=== PATIENT | female | born 1955 | race Hispanic/Latino ===

== ENCOUNTER 2019-08-20 08:34 | Outpatient (CLI) | payer MEDICARE ==
--- NOTE | 2019-08-20 10:48 | CT ---
CT OF ABDOMEN AND PELVIS: DATE: 08/20/2019. HISTORY: Disorder of retroperitoneum, history of right renal cell carcinoma and left-sided breast cancer. Eval uate for a retroperitoneal mass lesion. TECHNIQUE: Axial CT imaging at 5 mm intervals from lung bases through pubic symphysis with IV and oral contrast. Coronal and sagittal reformatted imaging obtained. FINDINGS: Partially visualized left breast implant present consistent with history of left mastectomy. Imaged l sharad bases unremarkable. No free intraperitoneal air or fluid. Hepatic parenchyma is diffusely hypodense, evidence of steatosis. Cholecystectomy clips are present. The spleen, pancreas, adrenal glands, and left kidney demonstrate no acute findings. The right kidney is absent, consistent with the provided history of right nephrectomy secondary to malignancy. There is bulky lymphadenopathy within the retroperitoneum on the right. This includes lymphadenopathy measuring 7.1 x 4.3 cm in the aortocaval/pericaval region. Additional bulky enlarged lymph nodes are seen within the aortocaval region measuring up to 3.8 cm. There is a 1.6 cm cyst within the lower pole of the left kidney, with Hounsfield units in the 12-14 r amanda. Uterus appears surgically absent. Sigmoid diverticulosis without evidence for diverticulitis. There is a ventral hernia in the periumbi lical region containing nondilated mid transverse colon. Appendix unremarkable. Osseous structures demonstrate no worrisome lytic or blastic lesions. IMPRESSION: Bulky retroperitoneal lymphadenopathy on the right, highly suspicious for metastatic disease. Transcribed Date/Time: 08/20/2019 11:09 AM
== END 2019-08-20 08:35 | disposition home or self-care (01) ==
LOC: CT 08:34
PROVIDERS: ATTEND Student in an Organized Health Care Education/Training Program
DX: K66.8 Other specified disorders of peritoneum (principal); R59.0 Localized enlarged lymph nodes
CPT/HCPCS: 74177; 82565

== ENCOUNTER 2019-09-12 08:15 | Day surgery (SDC) | payer MEDICARE ==
[2019-09-11 15:58] VITALS: BMI 37.5
[~2019-09-12 08:15] MED LIST: Prevnar 13-Val Conj/PF 0.5 ML SYRINGE IM ONE
[2019-09-12 08:40] LABS: Prothrombin Time 12.9 SEC (12.0-14.7)
[2019-09-12 08:41] LABS: PTT 33.1 SEC (22.9-36.1)
[2019-09-12 08:54] LABS: #Basophils 0.1 thou/uL (0.0-0.2); #Eosinphils 0.5 thou/uL (0.0-0.7); #Lymphocytes 3.4 thou/uL (1.20-3.40); #Monocytes 0.6 thou/uL (0.11-0.59); #Neutrophils 6.4 thou/uL (1.40-6.50); %Basophils 0.7 % (0.0-1.0); %Eosinophils 4.2 % (0.0-10.0); %Lymphocytes 31.1 % (21.0-51.0); %Monocytes 5.5 % (0.0-10.0); %Neutrophils 58.5 % (42.0-75.0); Hemoglobin 13.4 g/dL (12.0-16.0); Mean Corpuscular HGB CONC 33.2 g/dL (32.0-36.0); Mean Corpuscular Hemoglobin 30.3 pg (27.0-31.0); Mean Corpuscular Volume 91.1 fL (78.0-98.0); Mean Platelet Volume 9.1 fL (7.4-10.4); Platelet Count 245 thou/uL (130-400); RBC Distribution Width 12.2 % (11.5-14.5); Red Blood Cell (RBC) Count 4.42 mill/uL (4.20-5.40)
[2019-09-12] MEDS ORDERED: Sodium Bicarbonate 2.5 MEQ/5 ML VIAL ONE (10:15)
[2019-09-12] MEDS ORDERED: Midazolam HCl 2 mg/2 ml Vial ONE (10:15)
[2019-09-12] MEDS ORDERED: Fentanyl 100 MCG/2 ML VIAL ONE (10:15)
--- NOTE | 2019-09-12 13:40 | CT ---
CT-guided retroperitoneal mass biopsy INDICATION: History of bulky retroperitoneal lymphadenopathy seen on a comparison CT evaluation 08/20. Patient has a history of prior right renal cell carcinoma and left breast cancer. TECHNIQUE: Informed consent was obtained. Site overlying the right posterior lateral aspect of the petra dy was marked with a grid. The patient was placed prone on the CT from table. Preprocedure CT images were obtained identifying the bulky retroperitoneal lymph nodes. Site overlying the largest ly mph node adjacent to the inferior margin of the liver was marked. Patient underwent conscious sedation under guidance of the radiology nurse. The patient received 50 mcg of IV fentanyl and 1 mg o f IV Versed. Buffered 1% lidocaine was measured overlying subcutaneous tissues. A small dermatotomy was made. A 17-gauge trocar needle was guided down to the lesion. 3 separate core samples were obtain ed utilizing an 18-gauge core biopsy gun. Pathology was on-site to verify adequacy of tissue sampling. Following the last core sample, the trocar needle stylet was slightly removed to allow bloo d to coagulate within the trocar needle. After approximately 2 minutes, the blood plug was then advanced into the level of the biopsied retroperitoneal lymph node. The needle was removed. Pressure was held at the biopsy site until hemostasis was obtained. Postprocedural images were performed which demonstrated a small amount of retroperitoneal hemorrhage adjacent to the largest retroperitone al lymph node sampled. The patient tolerated the biopsy without difficulty. 2 of the core specimen were submitted in formalin. One core specimen was submitted in flow cytometry solution. IMPRESSION: Successful CT-guided retroperitoneal lymph node core sampling.
[2019-09-12 15:14] VITALS: BP 147/90; TEMP 98.5
== END 2019-09-12 11:50 | disposition home or self-care (01) ==
LOC: CT 08:15
PROVIDERS: ATTEND Family Medicine
PROC: 0WBH3ZX Excision of Retroperitoneum, Percutaneous Approach, Diagnostic (ICD-10-PCS; principal; 2019-09-12)
DX: C78.6 Secondary malignant neoplasm of retroperitoneum and peritoneum (principal); C80.1 Malignant (primary) neoplasm, unspecified; I10 Essential (primary) hypertension; E11.9 Type 2 diabetes mellitus without complications; G47.30 Sleep apnea, unspecified; Z85.3 Personal history of malignant neoplasm of breast; Z85.528 Personal history of other malignant neoplasm of kidney; Z79.84 Long term (current) use of oral hypoglycemic drugs; Z79.899 Other long term (current) drug therapy; Z90.12 Acquired absence of left breast and nipple; Z90.5 Acquired absence of kidney; Z99.89 Dependence on other enabling machines and devices
CPT/HCPCS: 36415; 49180; 77012; 85025; 85610; 85730; 88305; 88333; 88334; 88341; 88342; J2250; J3010

== ENCOUNTER 2019-10-02 07:57 | Outpatient (CLI) | payer MEDICARE ==
--- NOTE | 2019-10-02 09:34 | CT ---
CT of the head with and without contrast: 10/02/2019 COMPARISON: None HISTORY: Breast cancer, "kidney cancer" TECHNIQUE: Axial CT imaging at 5 mm intervals from vertex through skull base with and without IV cont rast. FINDINGS: There is complete opacification of the frontal sinus and anterior ethmoid air cells on the right with mild expansion of the paranasal sinuses. This can be seen on the basis of polyposis/chronic sinusitis and/or fungal infection. No worrisome lytic or blastic bone lesion identified. The noncontrast enhanced imaging demonstrates no intracranial hemorrhage, midline shift, mass effect, or ventricular enlargement. The postcontrast imaging demonstrates no abnormal enhancement within the brain parenchyma to suggest the presence of intracranial metastatic disease. This study was not tailored to evaluate the arterial structures of the brain. On the axial imaging there is marked thinning which could signify a focal area of the dehiscence invo lving the posterior wall of the expanded right frontal sinus. This could be best assessed with follow-up CT examination of the paranasal sinuses. IMPRESSION: No intracranial hemorrhage or evidence of intracranial metastatic disease. Paranasal sinus disease with possible posterior dehiscence of right frontal sinus.
--- NOTE | 2019-10-02 12:23 | CT ---
CT CHEST WITH CONTRAST: Date: 10/02/19 INDICATION: Malignant neoplasm right kidney and secondary malignant neoplasm retroperitoneum. Remote history of l eft breast cancer. No comparison chest CT. FINDINGS: The lung suarez are clear. No evidence of infiltrate or effusion. No pulmonary mass or nodule identif ied. Mediastinum unremarkable. No adenopathy. Thyroid unremarkable. Images through the upper abdomen show unremarkable liver, spleen, and visualized pancreas. The previo usly described mass in the right retroperitoneum is partially imaged. Osseous structures unremarkable. There is a left breast prosthesis. No evidence of axillary adenopathy. IMPRESSION: Unremarkable CT chest. POS: [facility]
--- NOTE | 2019-10-02 13:19 | NM ---
NUCLEAR MEDICINE BONE SCAN WHOLE BODY: (Skeletal scintigraphy) DATE: 10/02/2019 HISTORY: 64-year-old female with breast cancer and renal cell carcinoma. TECHNIQUE: IV injection of technetium 99m-MDP: 31.3 mCi 3 hour delayed whole body skeletal scintigraphy in anterior and posterior views. FINDINGS: There is a small focus of increased uptake at the right mid fibular diaphysis, which corresponds to t he fracture demonstrated on prior radiograph of 05/06/2005. Otherwise, there are no foci of asymmetrically increased uptake that are particularly suspicious for bone metastases. The right kidney is absent. There is hyperostosis frontalis interna. IMPRESSION: 1. No compelling evidence of skeletal metastasis. 2. Evidence of old right mid fibular shaft fracture. 3. Status post right nephrectomy.
== END 2019-10-02 07:58 | disposition home or self-care (01) ==
LOC: CT 07:57
PROVIDERS: ATTEND Internal Medicine Hematology & Oncology
DX: C64.9 Malignant neoplasm of unspecified kidney, except renal pelvis (principal); C78.6 Secondary malignant neoplasm of retroperitoneum and peritoneum; J32.9 Chronic sinusitis, unspecified; Z90.5 Acquired absence of kidney; Z87.81 Personal history of (healed) traumatic fracture
CPT/HCPCS: 70470; 71260; 78306; 82565; A9503

== ENCOUNTER 2020-01-14 11:00 | Outpatient (CLI) | payer MEDICARE ==
--- NOTE | 2020-01-14 11:59 | CT ---
CT chest with IV contrast CT abdomen and pelvis with IV and oral contrast HISTORY: Malignant neoplasm kidney. Restaging. COMPARISON: 08/20/2019. FINDINGS: Lungs are well-inflated. Mild linear scarring at the left posterior lung base. Left breast implant stable. Gallbladder is surgically absent. The 1.5 cm cyst at the inferior pole of the left kidney is unchange d. Non-obstructed sigmoid colon protruding through an umbilical hernia is again demonstrated. A lobular heterogeneous soft tissue density mass within the right retroperitoneum now measures up to 13.8 cm length by 8.1 cm width by 8.1 cm depth. The 2 areas of adenopathy on the prior study have become confluent. There is heterogeneous fluid density component involving the inferior margin, more pronounced on the current study. Significant compression of the inferior vena cava has progressed. There is subtle linear decreased density within the common iliac arteries and lower inferior vena cav a, although, rather than thrombus, is it is favored to represent differential contrast opacification due to inflow of the internal iliac veins.. Degenerative changes lumbar spine. IMPRESSION : Significant interval enlargement of the retroperitoneal adenopathy/mass, now a confluent process. It does significantly compress the inferior vena cava, possibly resulting in partial obstruction of flow. Umbilical hernia containing nonobstructed transverse colon. Chronic-type findings are stable.
== END 2020-01-14 11:01 | disposition home or self-care (01) ==
LOC: CT 11:00
PROVIDERS: ATTEND Internal Medicine Hematology & Oncology
DX: C64.1 Malignant neoplasm of right kidney, except renal pelvis (principal); C78.6 Secondary malignant neoplasm of retroperitoneum and peritoneum; K42.9 Umbilical hernia without obstruction or gangrene; M47.816 Spondylosis without myelopathy or radiculopathy, lumbar region; J98.4 Other disorders of lung
CPT/HCPCS: 71260; 74177; 82565

== ENCOUNTER 2020-03-05 06:40 | Outpatient (CLI) | payer MEDICARE, OTHER ==
[2020-03-05 16:55] LABS: #Basophils 0.1 thou/uL (0.0-0.2); #Eosinphils 0.9 thou/uL (0.0-0.7); #Lymphocytes 2.9 thou/uL (1.20-3.40); #Monocytes 0.7 thou/uL (0.11-0.59); #Neutrophils 6.8 thou/uL (1.40-6.50); %Basophils 1.1 % (0.0-1.0); %Eosinophils 7.7 % (0.0-10.0); %Lymphocytes 25.3 % (21.0-51.0); %Monocytes 6.1 % (0.0-10.0); %Neutrophils 59.8 % (42.0-75.0); Hemoglobin 12.5 g/dL (12.0-16.0); Mean Corpuscular HGB CONC 33.4 g/dL (32.0-36.0); Mean Corpuscular Hemoglobin 34.7 pg (27.0-31.0); Mean Platelet Volume 8.1 fL (7.4-10.4); Platelet Count 298 thou/uL (130-400); RBC Distribution Width 13.8 % (11.5-14.5); Red Blood Cell (RBC) Count 3.61 mill/uL (4.20-5.40); White Blood Cell (WBC) Count 11.3 thou/uL (4.8-10.8)
[2020-03-05 17:13] LABS: Anion Gap 14 mmol/L (10-20); BUN (Urea Nitrogen) 40 mg/dL (9.8-20.1); Calc. Creatinine Clearance 0 mL/min (70-130); Calcium 9.9 mg/dL (7.8-10.44); Carbon Dioxide 21 mmol/L (23-31); Chloride 108 mmol/L (98-107); Estimated GFR-MDRD 33; Glucose 143 mg/dL (80-115); Potassium 4.2 mmol/L (3.5-5.1); Sodium 139 mmol/L (136-145)
--- NOTE | 2020-03-05 18:53 | RAD ---
EXAM: CHEST TWO VIEWS: 03/05/20 HISTORY: Preoperative evaluation. FINDINGS: Heart size is within normal limits. Lungs are clear. No confluent pneumonia, overt edema or pleural e ffusion. IMPRESSION: No acute intrathoracic disease. Atherosclerosis of the aorta. POS: [facility]
[2020-03-06 17:27] LABS: SARS-CoV-2 MS2 Positive; SARS-CoV-2 N Gene Negative; SARS-CoV-2 S Gene Negative; SARS-CoV-2 orf1ab Negative
== END 2020-03-05 06:41 | disposition home or self-care (01) ==
LOC: LABBT 06:40
PROVIDERS: ATTEND Surgery
DX: Z01.818 Encounter for other preprocedural examination (principal); Z11.59 Encounter for screening for other viral diseases; I70.0 Atherosclerosis of aorta
CPT/HCPCS: 71046; 80048; 85025; U0003; 87635

== ENCOUNTER 2020-05-10 15:36 | Outpatient (CLI) | payer MEDICARE ==
--- NOTE | 2020-05-10 17:13 | ULT ---
SOFT TISSUE ULTRASOUND CHEST WALL: History: Palpable mass in the medial aspect of the left anterior chest wall. Patient has had prior mastectomy with an augmentation prosthesis implant in place. FINDINGS: The palpable mass is noted at approximately the 9 o'clock aspect of the breast. It measures 1 x 1.7 x 1.8 cm in size and appears to contain both some echogenic and cystic components. No evidence for blo od flow within this mass. There are multiple other smaller circumscribed anechoic and slightly hypoe choic nodular foci within the left breast tissue as well measuring up to approximately .5 cm in size. These are seen at 12 o'clock, 1 o'clock, 2 o'clock, and 3 o'clock positions. Review of prior chest CT scan dated 01-14-2020, in the medial aspect of the left breast there is an ova l fat containing circumscribed mass in the inner aspect of the left breast on the prior CT which I fe el corresponds to the palpable finding at 9 o'clock on today's breast ultrasound examination, consist ent with that of a fat necrosis. The other smaller anechoic and hypoechoic nodular foci also have a t ypical appearance for small areas of fat necrosis. IMPRESSION: Mixed echogenic and non-echogenic mass in the 9 o'clock position of the left breast accounting for th e palpable finding corresponds to a circumscribed fatty mass on prior CT scan, evidence for a focal a jayant of fat necrosis. Multiple other smaller circumscribed hypoechoic and anechoic foci in the left breast also are evidenc e for multiple small areas of fat necrosis. Findings were discussed with the patient at the time of the examination. BIRADS category 2 - benign findings. Continued routine surveillance. POS: [facility]
== END 2020-05-10 15:37 | disposition home or self-care (01) ==
LOC: BICULT 15:36
PROVIDERS: ATTEND Internal Medicine Hematology & Oncology
DX: R22.2 Localized swelling, mass and lump, trunk (principal); N63.24 Unspecified lump in the left breast, lower inner quadrant; N64.1 Fat necrosis of breast

== ENCOUNTER 2021-03-10 20:24 | Emergency (ER) | payer MEDICARE ==
[2021-03-10] MEDS ORDERED: Ondansetron ODT 4 MG TAB ONE (20:33)
== END 2021-03-10 21:26 | disposition home or self-care (01) ==
LOC: ERS 20:24
DX: R11.2 Nausea with vomiting, unspecified (principal); C78.89 Secondary malignant neoplasm of other digestive organs; E11.9 Type 2 diabetes mellitus without complications; F12.90 Cannabis use, unspecified, uncomplicated
CPT/HCPCS: 36415; 80053; 82248; 83615; 84100; 84550; 99283; Q0162